=== PATIENT | male | born 1980 | race Caucasian/White ===

== ENCOUNTER 2018-05-25 05:02 | Emergency (ER) | payer OTHER ==
[~2018-05-25] VITALS: Ht 167.6 cm; Wt 81.6 kg
[~2018-05-25 05:02] MED LIST: ABILIFY30 MG PO; ALBUTEROL0.09 MG/A2 IH; AMBIEN10 M1 PO; AMBIEN10 MG PO; AMOXIL500 MG PO; ANAPROX DS550 MG PO; ANTIBIOTIC O500 U/GM TP; AUGMENTIN 875 M1 TAB PO; BACTRIM DS 8001 TA1 PO; CLARITIN10 MG PO; CLINDAMYCIN300 MG PO; DARVOCET N 1001 TAB PO; FLEXERIL10 MG PO; HYDROCODONE BIT1 T11 PO; IBU800 M1 PO; IBUPROFEN 30 M800 MG PO; KEFLEX500 MG PO; KLONOPIN1 M1 PO; MEDROL DOSEPAK4 MG PO; MELADOX NATURAL3 MG PO; MOTRIN800 MG PO; NAPROSYN500 MG PO; NORCO 325 MG-51 TAB PO; PEN-VEE K500 MG PO; PEN-VK500 MG PO; PERCOCET 325 MG1 TA5 PO; PHENERGAN W/DM120 ML PO; PREDNICOT20 MG PO; ROBITUSSIN DM120 ML PO; TESSALON PERLE100 M1 PO; TRAMADOL HCL50 MG PO; TYLENOL W/CODEI1 TA2 PO; ULTRAM50 MG PO; VALIUM10 MG PO; VICODIN 500 MG-1 TAB PO; ZOLOFT25 MG PO; ZYRTEC10 M1 PO
[2018-05-25] MEDS ORDERED: ZOLOFT100 MG PO (05:11)
[2018-05-25] MEDS ORDERED: XANAX2 M1 PO (05:12)
== END 2018-05-25 06:29 | disposition home or self-care (01) ==
LOC: ED 05:02
DX: T18.108A Unspecified foreign body in esophagus causing other injury, initial encounter (principal); F17.200 Nicotine dependence, unspecified, uncomplicated; Z91.030 Bee allergy status; Z79.899 Other long term (current) drug therapy; X58.XXXA Exposure to other specified factors, initial encounter; Y93.89 Activity, other specified; Y92.009 Unspecified place in unspecified non-institutional (private) residence as the place of occurrence of the external cause; Y99.8 Other external cause status

== ENCOUNTER 2019-01-25 14:39 | Emergency (ER) | payer OTHER ==
[~2019-01-25] VITALS: Ht 170.1 cm; Wt 108.0 kg
[~2019-01-25 14:39] MED LIST changes: +XANAX2 M1 PO; +ZOLOFT100 MG PO
[2019-01-25 15:37] LABS: BASO # 0.1 10*3/uL (0.0-0.1); BASO % 1.5 % (0.0-1.0); EOS # 0.2 10*3/uL (0.0-0.4); EOS % 1.6 % (1.0-4.0); HEMATOCRIT 43.4 % (42.0-52.0); HEMOGLOBIN 15.6 g/dl (14.0-18.0); MEAN CELL VOLUME 92.7 fl (80.0-94.0); MEAN CORPUSCULAR HGB 33.3 pg (27.0-31.0); MEAN CORPUSCULAR HGB CONC 35.9 g/dl (33.0-37.0); MEAN PLATELET VOLUME 10.2 fl (9.6-12.3); MONO # 0.5 10*3/uL (0.1-1.0); MONO % 5.7 % (3.0-9.0); NEUT # 5.4 10*3/uL (2.3-7.9); NEUT % 58.9 % (47.0-73.0); PLATELET COUNT AUTOMATED 256 10*3/uL (130-400); RED BLOOD COUNT 4.68 10*6/uL (4.50-5.90); RED CELL DISTRI WIDTH 12.2 % (0-14.5); WHITE BLOOD COUNT 9.2 10*3/uL (4.8-10.8)
[2019-01-25 15:50] LABS: BUN 13 mg/dl (7-24); CHLORIDE 111 mmol/L (98-107); POTASSIUM 3.9 mmol/L (3.5-5.1); SODIUM 141 mmol/L (136-145)
[2019-01-25 15:52] LABS: ACT PARTIAL THROMBO TIME 26.9 SECONDS (20.0-32.1); INTERNATIONAL NORM RATIO 0.9 (2.0-3.5)
== END 2019-01-25 16:34 | disposition short-term general hospital (02) ==
LOC: ED 14:39
PROVIDERS: Emergency Medicine
DX: T79.A21A Traumatic compartment syndrome of right lower extremity, initial encounter (principal); S80.811A Abrasion, right lower leg, initial encounter; R20.0 Anesthesia of skin; F17.210 Nicotine dependence, cigarettes, uncomplicated; Z91.030 Bee allergy status; Z88.6 Allergy status to analgesic agent; Z79.899 Other long term (current) drug therapy; W20.8XXA Other cause of strike by thrown, projected or falling object, initial encounter; Y93.89 Activity, other specified; Y92.89 Other specified places as the place of occurrence of the external cause; Y99.8 Other external cause status

== ENCOUNTER 2019-06-16 11:21 | Emergency (ER) | payer OTHER ==
[~2019-06-16] VITALS: Ht 170.1 cm; Wt 104.3 kg
[2019-06-16] MEDS ORDERED: AMOXICILLIN500 M2 PO (11:45)
[2019-06-16] MEDS ORDERED: IBUPROFEN600 MG PO (11:45)
== END 2019-06-16 12:15 | disposition home or self-care (01) ==
LOC: ED 11:21
DX: K02.9 Dental caries, unspecified (principal); F17.200 Nicotine dependence, unspecified, uncomplicated; Z91.030 Bee allergy status; Z88.6 Allergy status to analgesic agent

== ENCOUNTER 2020-02-06 13:40 | Emergency (ER) | payer OTHER ==
[~2020-02-06] VITALS: Wt 108.9 kg
[~2020-02-06 13:40] MED LIST changes: +AMOXICILLIN500 M2 PO; +IBUPROFEN600 MG PO
[2020-02-06] MEDS ORDERED: TRAMADOL HCL50 MG PO (14:55)
[2020-02-06] MEDS ORDERED: DOXYCYCLINE100 M3 PO (14:55)
== END 2020-02-06 16:02 | disposition home or self-care (01) ==
LOC: ED 13:40
DX: L02.415 Cutaneous abscess of right lower limb (principal)

== ENCOUNTER 2020-04-24 11:59 | Emergency (ER) | payer OTHER ==
[~2020-04-24] VITALS: Ht 170.1 cm; Wt 9.1 kg
[~2020-04-24 11:59] MED LIST changes: +DOXYCYCLINE100 M3 PO
[2020-04-24] MEDS ORDERED: PERCOCET 5-3251 EACH PO (14:32)
== END 2020-04-24 14:38 | disposition home or self-care (01) ==
LOC: ED 11:59
DX: S70.02XA Contusion of left hip, initial encounter (principal); Z91.030 Bee allergy status; Z88.6 Allergy status to analgesic agent; V29.9XXA Motorcycle rider (driver) (passenger) injured in unspecified traffic accident, initial encounter; Y93.89 Activity, other specified; Y92.89 Other specified places as the place of occurrence of the external cause; Y99.8 Other external cause status